=== PATIENT | male | born 1940 | race Caucasian/White ===

== ENCOUNTER → 2016-11-19 | Outpatient (CLI) | payer OTHER | END | disposition home or self-care (01) | LOC: NUC 09:48 | DX: M89.9 Disorder of bone, unspecified (principal); M15.0 Primary generalized (osteo)arthritis; R97.20 Elevated prostate specific antigen [PSA] | CPT/HCPCS: 78306; A9503 ==

== ENCOUNTER → 2017-12-11 | Outpatient (CLI) | payer OTHER | END | disposition home or self-care (01) | LOC: NUC 10:00 | DX: M89.9 Disorder of bone, unspecified (principal); M47.892 Other spondylosis, cervical region; M47.895 Other spondylosis, thoracolumbar region; M19.012 Primary osteoarthritis, left shoulder; M19.011 Primary osteoarthritis, right shoulder; M89.8X8 Other specified disorders of bone, other site; M17.0 Bilateral primary osteoarthritis of knee | CPT/HCPCS: 78306; A9503 ==